=== PATIENT | female | born 1985 | race Caucasian/White ===

== ENCOUNTER 2017-04-10 12:59 | Emergency (ER) | payer OTHER ==
[~2017-04-10] VITALS: Ht 162.6 cm; Wt 117.9 kg
[2017-04-10] MEDS ORDERED: BACLOFEN10 MG PO (13:31)
[2017-04-10] MEDS ORDERED: IBUPROFEN400 MG PO (13:31)
[2017-04-10] MEDS ORDERED: BUTRANS1 EAC1 TD (13:32)
[2017-04-10] MEDS ORDERED: PROMETHAZINE HC25 M1 PO (13:32)
[2017-04-10] MEDS ORDERED: FAMOTIDINE20 MG PO (13:32)
[2017-04-10] MEDS ORDERED: PNV PRENATAL P1 EACH PO (13:33)
[2017-04-10] MEDS ORDERED: METFORMIN HCL500 M1 PO (13:33)
[2017-04-10] MEDS ORDERED: CLONIDINE HCL0.1 MG PO (13:33)
[2017-09-21] MEDS ORDERED: MONTELUKAST SOD10 MG PO (12:16)
[2017-09-21] MEDS ORDERED: ZYRTEC10 M3 PO (12:17)
[2017-09-21] MEDS ORDERED: VYVANSE40 MG PO (12:17)
[2017-09-21] MEDS ORDERED: VITAMIN D1000 UNIT PO (12:18)
[2017-09-21] MEDS ORDERED: PROBIOTIC1 EAC1 PO (12:18)
[2017-09-21] MEDS ORDERED: CALCIUM500 M1 PO (12:18)
== END 2017-04-10 14:14 | disposition home or self-care (01) ==
LOC: ED 12:59
DX: R10.9 Unspecified abdominal pain (principal); G89.29 Other chronic pain; F41.9 Anxiety disorder, unspecified; J45.909 Unspecified asthma, uncomplicated; K21.9 Gastro-esophageal reflux disease without esophagitis; Z87.442 Personal history of urinary calculi; Z87.891 Personal history of nicotine dependence; Z88.8 Allergy status to other drugs, medicaments and biological substances; Z88.2 Allergy status to sulfonamides; Z79.899 Other long term (current) drug therapy
CPT/HCPCS: 81001; 84703; 85025; 99283

== ENCOUNTER 2017-09-25 05:35 | Day surgery (SDC) | payer OTHER ==
[~2017-09-25] VITALS: Ht 162.6 cm; Wt 117.9 kg
[~2017-09-25 05:35] MED LIST: BACLOFEN10 MG PO; BUTRANS1 EAC1 TD; CALCIUM500 M1 PO; CLONIDINE HCL0.1 MG PO; FAMOTIDINE20 MG PO; IBUPROFEN400 MG PO; METFORMIN HCL500 M1 PO; MONTELUKAST SOD10 MG PO; PNV PRENATAL P1 EACH PO; PROBIOTIC1 EAC1 PO; PROMETHAZINE HC25 M1 PO; VITAMIN D1000 UNIT PO; VYVANSE40 MG PO; ZYRTEC10 M3 PO
--- NOTE | 2017-09-25 07:52 | NUR ---
PT HAD BEEN TAKEN TO SURGERY, BUT AND DAUGHTER REMAINED IN RM. GAVE DIRECTIONS TO RESTROOM, AND GOT COFFEE AND WATER FOR THEM. THEY WERE VERY APPRECIATIVE. WILL FOLLOW NEEDED
--- NOTE | 2017-09-25 08:49 | NUR ---
09/25/17 0849 Shannan Barrow 9448-PATIENT ARRIVED TO PACU ON 6L MASK O2 SAT 100% NONAROUSABLE. NO DRAINAGE TO ANTONIO AREA.
--- NOTE | 2017-09-25 10:47 | NUR ---
PT IS MOANING AND RESTLESS, C/O PAIN. SHE IS INCONSOLIBLE AT THIS TIME. HER DAUGHTER IS AT THE BEDSIDE. CALL LIGHT IT IS WITHIN REACH. WATER ON BEDSIDE TABLE. NO OTHE C/O'S AT THIS TIME. WILL REASSESS WITHIN THE HOUR.
--- NOTE | 2017-09-25 11:57 | NUR ---
PT IS ABLE TO SLEEP/REST. SHE REPORTS HER PAIN IS IMPROVING, BUT SLOWLY STARTING TO COME BACK. BOYFRIEND AND DAUGHTER ARE AT THE BEDSIDE. NO OTHER C/O'S AT THIS TIME. WILL REASSESS WITHIN THE HOUR.
--- NOTE | 2017-09-25 12:28 | NUR ---
LE 1200: PT ASSISTED UP OOB TO THE BATHROOM WHERE SHE WAS ABLE TO VOID 150ML OF BLOODY URINE. SHE IS HELPED BACK TO BED AND SHE STATES THAT SHE WANTS TO GO HOME.
--- NOTE | 2017-09-25 13:01 | OR ---
[facility] [address] [place], [place] [address] Signed DATE OF OPERATION: 09/25/2017 SURGEON: Alok Hartman MD PREOPERATIVE DIAGNOSIS: 4 mm right renal calculus. POSTOPERATIVE DIAGNOSIS: 4 mm right renal calculus. NAME OF PROCEDURES: 1. Diagnostic cystoscopy with right retrograde pyelogram. 2. Right flexible nephroureteroscopy with basket extraction of renal calculus. 3. Insertion of an indwelling right ureteral stent. SURGEON: Alok Hartman MD. ANESTHESIA: General. ESTIMATED BLOOD LOSS: None. COMPLICATIONS: None. SPECIMENS: Right renal calculus sent to the lab for stone analysis. DRAINS: A 6 x 24 cm Contour double-J ureteral stent inserted into the right ureter. INDICATIONS FOR PROCEDURE: Ms. Singletary is a very pleasant 32-year-old female with a history of chronic pain issues and fibromyalgia as well as nephrolithiasis, who presented to my clinic a couple of months ago with complaints of intermittent right-sided flank pain. She had undergone a CT scan, which revealed a 4 mm lower pole of the right renal calculus. At that time, she requested elective extraction of the stone. After discussion of the risks and benefits of the procedure, along with the likely need to undergo ureteral stenting, the patient Electronically Signed By: ALOK HARTMAN MD 09/25/17 1301 PATIENT NAME: JOVANA SINGLETARY OPERATIVE REPORT DATE OF : 89 PHYSICIAN: ALOK HARTMAN MD REPORT #: [id number] REPORT IS CONFIDENTIAL AND NOT TO BE RELEASED WITHOUT AUTHORIZATION [facility] [address], [place] [address] Signed agreed to proceed. OPERATIVE FINDINGS: 1. On cystoscopy, there was no evidence of any suspicious masses, stones, or lesions within the bladder. Bilateral ureteral orifices are in their normal anatomic location. 2. Right retrograde pyelogram revealed a normal right ureter that was actively peristalsing. The pyelogram revealed a normal right kidney with no evidence of any calyceal dilation or blunting noted. I was unable to appreciate the stone on the pyelogram films. 3. Flexible nephroscopy revealed the presence of a 4 mm stone in the lower pole of the right kidney. The stone was extracted using a Zero tip basket without the need for laser lithotripsy. Once I was satisfied that all these stones had been extracted, a 6 x 24 cm Contour double-J ureteral stent was inserted in the right ureter without difficulty. DESCRIPTION OF PROCEDURE: After informed consent was obtained, the patient was taken back to the operating room. She was transferred from the [facility] to operating table, where general anesthesia was induced. She was placed in dorsal lithotomy position and genitalia prepped and draped in standard sterile fashion. Using a 30 degree lens on a 22-Romanian introducer, rigid cystoscope was inserted through the urethra into her bladder under direct visualization. Pain endoscopic views of the bladder were then obtained. Please see above findings. Attention was turned to the right ureteral orifice. A cone-tipped catheter was advanced to the level of the right UO and a right retrograde pyelogram was performed. Please see the findings. I then inserted a 0.035 Sensor wire into the right ureter and up into the right collecting system. Adequate placement of the wire was noted on fluoroscopy. Over the wire, an 11/13 ureteral access sheath was passed into the right collecting system without difficulty. Through the sheath, a flexible ureteroscope was passed up into the right proximal ureter and right kidney. Nephroscopy was performed. Please see above findings. The 4 mm stone noted in the right lower pole was extracted using a Zero tip basket in toto. I did not appreciate any of her remaining fragments in the kidney once the stone was extracted. I then removed the ureteral scope and inserted a Sensor wire through the sheath and into the right collecting system. The ureteral access sheath was then removed fully intact. Over the wire, a 6 x 24 cm Contour double-J ureteral stent was inserted into the right ureter under direct visualization without difficulty. An adequate proximal coil was seen within the right renal pelvis along with an adequate distal coil in the bladder. The string was left attached to the indwelling stent. The string was secured to the patient's body with Steri-Strips. The patient's bladder was then drained and the procedure was terminated. The patient tolerated the procedure well without any complication. She will now be transferred back to the postanesthesia care unit in stable condition. DISPOSITION: Electronically Signed By: ALOK HARTMAN MD 09/25/17 1301 PATIENT NAME: JOVANA SINGLETARY OPERATIVE REPORT DATE OF : 89 PHYSICIAN: ALOK HARTMAN MD REPORT #: [id number] REPORT IS CONFIDENTIAL AND NOT TO BE RELEASED WITHOUT AUTHORIZATION [facility] [address] [place] [id number] Signed Ms. Singletary will be discharged to home today later today in stable condition. I discussed the details of today's procedure with her boyfriend, Vishal, and answered all of his questions. She has been asked to remove her indwelling stent using the string attached in approximately 3 days. She will be sent home with Cipro 500 mg for a total of 5 days along with [place] 7.5/325, #30 q.6 hours p.r.n. pain. She will be scheduled to return to clinic in 3 weeks for a postoperative evaluation. MD SUNIL Maciel/MODL /[id number] Electronically Signed By: ALOK HARTMAN MD 09/25/17 1301 PATIENT NAME: JOVANA SINGLETARY OPERATIVE REPORT DATE OF : 89 PHYSICIAN: ALOK HARTMAN MD REPORT #: [id number] REPORT IS CONFIDENTIAL AND NOT TO BE RELEASED WITHOUT AUTHORIZATION
== END 2017-09-25 13:00 | disposition home or self-care (01) ==
LOC: DS 05:35 → OPS 05:35
PROVIDERS: Urology
PROC: BT1DYZZ Fluoroscopy of Right Kidney, Ureter and Bladder using Other Contrast (ICD-10-PCS; 2017-09-25)
PROC: 0TC68ZZ Extirpation of Matter from Right Ureter, Via Natural or Artificial Opening Endoscopic (ICD-10-PCS; principal; 2017-09-25 06:45)
PROC: 0T768DZ Dilation of Right Ureter with Intraluminal Device, Via Natural or Artificial Opening Endoscopic (ICD-10-PCS; 2017-09-25 06:45)
DX: N20.0 Calculus of kidney (principal); E28.2 Polycystic ovarian syndrome; Z90.89 Acquired absence of other organs; Z98.890 Other specified postprocedural states; Z87.891 Personal history of nicotine dependence; Z88.1 Allergy status to other antibiotic agents; Z88.5 Allergy status to narcotic agent; Z88.8 Allergy status to other drugs, medicaments and biological substances; Z79.899 Other long term (current) drug therapy
CPT/HCPCS: 00910; 74420; 82365; C2617; J0330; J0696; J1100; J1170; J2250; J2550; J2704; J2710; J3010; J7120; Q9967

== ENCOUNTER 2017-09-28 10:36 | Emergency (ER) | payer OTHER ==
[~2017-09-28] VITALS: Ht 162.6 cm; Wt 117.9 kg
[2017-09-28] MEDS ORDERED: NORCO 7.5-3251 EACH PO (13:28)
== END 2017-09-28 13:59 | disposition home or self-care (01) ==
LOC: ED 10:36
DX: R10.9 Unspecified abdominal pain (principal); F41.9 Anxiety disorder, unspecified; J45.909 Unspecified asthma, uncomplicated; K21.9 Gastro-esophageal reflux disease without esophagitis; Z87.891 Personal history of nicotine dependence; Z88.5 Allergy status to narcotic agent; Z88.8 Allergy status to other drugs, medicaments and biological substances; Z88.1 Allergy status to other antibiotic agents; Z88.6 Allergy status to analgesic agent; Z79.899 Other long term (current) drug therapy
CPT/HCPCS: 76775; 80053; 81001; 84703; 85025; 96361; 96374; 96375; 99284; J1170; J2550; J7030

== ENCOUNTER 2020-04-25 17:24 | Emergency (ER) | payer OTHER ==
[~2020-04-25] VITALS: Ht 162.6 cm; Wt 128.8 kg
[~2020-04-25 17:24] MED LIST changes: +NORCO 7.5-3251 EACH PO
[2020-04-25] MEDS ORDERED: OMEGA 3 500 SO1 EACH (18:05)
[2020-04-25] MEDS ORDERED: FLAGYL500 MG PO (19:13)
[2020-04-25] MEDS ORDERED: DOXYCYCLINE HY100 MG PO (19:13)
[2020-04-25] MEDS ORDERED: PROMETHAZINE HC25 M1 PO (19:23)
== END 2020-04-25 19:29 | disposition home or self-care (01) ==
LOC: ED 17:24
DX: N73.9 Female pelvic inflammatory disease, unspecified (principal); D64.9 Anemia, unspecified; F41.9 Anxiety disorder, unspecified; J45.909 Unspecified asthma, uncomplicated; K21.9 Gastro-esophageal reflux disease without esophagitis; Z87.891 Personal history of nicotine dependence; Z91.048 Other nonmedicinal substance allergy status; Z88.5 Allergy status to narcotic agent; Z88.2 Allergy status to sulfonamides; Z88.1 Allergy status to other antibiotic agents; Z91.040 Latex allergy status; Z88.8 Allergy status to other drugs, medicaments and biological substances; Z79.899 Other long term (current) drug therapy
CPT/HCPCS: 96372; 99283; J0696; J1170

== ENCOUNTER 2020-04-26 22:24 | Emergency (ER) | payer OTHER ==
[~2020-04-26] VITALS: Ht 162.6 cm; Wt 128.8 kg
[~2020-04-26 22:24] MED LIST changes: +DOXYCYCLINE HY100 MG PO; +FLAGYL500 MG PO; +OMEGA 3 500 SO1 EACH
== END 2020-04-27 00:29 | disposition home or self-care (01) ==
LOC: ED 22:24
DX: R10.2 Pelvic and perineal pain (principal); J45.909 Unspecified asthma, uncomplicated; D64.9 Anemia, unspecified; K21.9 Gastro-esophageal reflux disease without esophagitis; Z87.891 Personal history of nicotine dependence; Z91.041 Radiographic dye allergy status; Z88.5 Allergy status to narcotic agent; Z88.2 Allergy status to sulfonamides; Z88.1 Allergy status to other antibiotic agents; Z91.040 Latex allergy status; Z88.8 Allergy status to other drugs, medicaments and biological substances; Z79.899 Other long term (current) drug therapy
CPT/HCPCS: 76830; 76856; 80053; 81001; 84703; 85025; 96361; 96374; 96375; 99284-25; J2270; J2765; J7030

== ENCOUNTER 2025-02-15 15:25 | Emergency (ER) | payer OTHER ==
[~2025-02-15] VITALS: Ht 162.6 cm; Wt 123.6 kg
[2025-02-15 16:08] LABS: BASOPHILS 0.4 % (0-2); HEMATOCRIT 43.6 % (35.0-50.0); LYMPHOCYTES 19.4 % (24-44); MCH 28.8 (27-36); MCHC 34.3 g/dl (30-36); MCV 83.9 fl (81-99); MONOCYTES 5.8 % (0-12); NEUTROPHILS 73.4 % (39-80); PLATELET COUNT 473 K/uL (140-440); RDW 13.5 (10.5-15.0)
[2025-02-15 16:17] LABS: ALBUMIN 3.9 g/dL (3.4-5.0); ALBUMIN/GLOBULIN RATIO 1.05 (1.1-2.4); ANION GAP 9.9 (7-21); BILIRUBIN, TOTAL 0.5 mg/dL (0.2-1.0); BUN/CREATININE RATIO 10.63 (6.0-28.6); CALCIUM 8.8 mg/dL (8.5-10.1); CREATININE, SERUM 0.94 mg/dL (0.55-1.02); POTASSIUM 3.9 mmol/L (3.5-5.1); PROTEIN, TOTAL 7.6 g/dL (6.4-8.2)
[2025-02-15 16:52] LABS: BILIRUBIN, URINE NEGATIVE (negative); BLOOD/HGB, URINE SMALL (Negative); KETONE, URINE NEGATIVE (Negative); LEUK ESTERASE, URINE NEGATIVE (negative); NITRITE, URINE NEGATIVE (negative)
[2025-02-15 17:02] LABS: BACTERIA, URINE NONE SEEN /hpf (negative); CASTS, URINE NONE SEEN \\lpf; COLLECTION TYPE, URINE CLEAN CATCH; CRYSTALS, URINE NONE SEEN (0-1+); EPITHELIAL CELLS, URINE SQUAMOUS 3+ /lpf (0-1+); RED BLOOD CELLS, URINE 0-1 /hpf (0-5); REFLEX CULTURE, URINE No (No)
[2025-02-15] MEDS ORDERED: MORPHINE SULFATE 4 MG/ML VIAL IV ONE (17:15)
[2025-02-15] MEDS ORDERED: METOCLOPRAMIDE HCL 10 MG/2 ML SDV IV ONE (17:15)
[2025-02-15] MEDS ORDERED: OXYBUTYNIN CHLOR5 MG PO (19:38)
[2025-02-15] MEDS ORDERED: PYRIDIUM200 MG PO (19:38)
[2025-02-15 19:59] VITALS: BP 153/94
== END 2025-02-15 20:00 | disposition home or self-care (01) ==
LOC: ED 15:25
PROVIDERS: Emergency Medicine
DX: R10.32 Left lower quadrant pain (principal); K21.9 Gastro-esophageal reflux disease without esophagitis; J45.909 Unspecified asthma, uncomplicated; M19.90 Unspecified osteoarthritis, unspecified site; Z88.2 Allergy status to sulfonamides; Z88.1 Allergy status to other antibiotic agents; Z91.041 Radiographic dye allergy status; Z79.2 Long term (current) use of antibiotics; Z79.899 Other long term (current) drug therapy
CPT/HCPCS: 36415; 74176; 80053; 81001; 83690; 84703; 85025; 96374; 96375; 99284-25; J2270; J2765